=== PATIENT | female | born 1950 | race Caucasian/White ===

== ENCOUNTER 2022-11-03 14:15 | Outpatient (RCR) | payer MEDICARE, BC, SELFPAY | END 2022-12-28 13:13 | disposition home or self-care (01) | PROVIDERS: PCP Family Medicine; Visit Provider Family Medicine | DX: S46.011A Strain of muscle(s) and tendon(s) of the rotator cuff of right shoulder, initial encounter (principal); M25.511 Pain in right shoulder; Z51.89 Encounter for other specified aftercare | CPT/HCPCS: 97110; 97140; 97162; 97535 ==

== ENCOUNTER 2022-11-06 08:47 | Emergency (ER) | payer MEDICARE, BC, SELFPAY ==
[2022-11-06 08:53] VITALS: BP 130/68; PULSE 70; RESP 18; TEMP 36.7; O2SAT 96; BMI 25.7
--- NOTE | 2022-11-06 09:06 | ED_ITS ---
HPI - General Adult General Chief complaint: Cough Stated complaint: cough,heart problems Time Seen by Provider: 11/06/22 08:51 History of Present Illness HPI narrative: pt here with cough and congestion since Monday , has been testing negative for covid, cough is productive, also having a prickling feeling in chest, history of stent 2019 71-year-old woman presenting to the emergency department with complaint of cough, frankly jags of coughing or she will also feel a prickly this now since last night across her upper chest. Does have cardiac history and so has some concerns about this. Thought she should get her heart checked out. Does admit some degree of a chronic cough for she has seen a number of specialists ultimately being diagnosed with rhinitis. Has a history of use of sounds like an antihistamine as well as a steroid nasal spray which admittedly had been helpful when used beyond 2 weeks. Has not had fever. No particular exposures. Cough had been worse when prone but now over the last 4 days is present in most positions. She is not describing orthopnea. Talking makes it worse. Has had numerous sounds from upper airway of wheeze and crackles at times. Negative home testing for COVID. Notes a history of bronchitis but usually not until November. Has been feeling a little nauseated or gas intermittently but otherwise not describing abdominal pain. The plan on traveling next week to [place] and just want to make sure that everything is okay. Related Data Home Medications Medication Instructions Recorded Confirmed azelastine 137 mcg (0.1 %) nasal intranasal 10/17/22 10/17/22 spray aerosol fluticasone propionate 50 spray intranasal 10/17/22 10/17/22 mcg/actuation nasal spray,suspension metoprolol succinate 25 mg 12.5 mg PO DAILY 10/17/22 10/17/22 tablet,extended release 24 hr pantoprazole 40 mg tablet,delayed 40 mg PO DAILY 10/17/22 10/17/22 release rosuvastatin 10 mg tablet 10 mg PO QPM 10/17/22 10/17/22 rosuvastatin 5 mg tablet mg PO 10/17/22 10/17/22 valsartan 40 mg tablet 40 mg PO DAILY 10/17/22 10/17/22 Previous Rx's Medication Instructions Recorded benzonatate 200 mg capsule 200 mg PO TID PRN cough #30 caps 11/06/22 doxycycline monohydrate 100 mg 100 mg PO BID #16 caps 11/06/22 capsule prednisone 20 mg tablet 40 mg (2 x 20 mg) PO DAILY 5 days 11/06/22 #10 tabs Allergies Allergy/AdvReac Type Severity Reaction Status Date / Time lisinopril Allergy Mild Cough Verified 10/17/22 10:32 metronidazole [From Flagyl] Allergy Unknown Verified 10/17/22 10:32 Review of Systems Status of ROS: Reports: 6 or more systems reviewed and unremarkable except as noted in History and below [facility] Social History Smoking Status: Never smoker Do you use any of these nicotine containing products: None How often do you have a drink containing alcohol: 4 or more times a week How many standard drinks containing alcohol do you have on a typical day: 1 or 2 AUDIT-C Alcohol total score: 4 Non-prescribed substance use: denies use Exam Narrative: Exam Narrative: Pleasant. Easily conversant. Breathing easily. Skin is warm and dry. There is no edema. Well-perfused peripherally. Oropharynx is moist. Uvula while not enlarged is resting to the right. I do not appreciate inflammatory changes in the throat. Neck is supple without lymphadenopathy. Lungs with deep inspiratory effort does inspire coarse cough. There is crepitus in bilateral lower lungs. I do not hear wheeze. Heart in regular rate and rhythm. Abdomen is soft and nontender. Const: Vital Signs, click to edit/add: Vital Signs - 24 hr 11/06/22 08:53 11/06/22 09:35 11/06/22 10:05 Temperature 98.0 F Pulse Rate [Right Pulse Oximeter] 70 73 Respiratory Rate 18 16 Blood Pressure [Ri ght Upper Arm] 130/68 115/69 Pulse Oximetry 96 92 93 Oxygen Delivery Me thod Room Air Room Air Documenting provider has reviewed patient's vital signs: yes Course Vital Signs Vital signs: Initial Vital Signs Respiratory Effort Normal 11/06/22 08:52 Respiratory Depth Normal 11/06/22 08:52 Respiratory Pattern Normal 11/06/22 08:52 Vital Signs Temperature 98.0 F 11/06/22 08:53 Pulse Rate 70 11/06/22 08:53 Respiratory Rate 18 11/06/22 08:53 Blood Pressure 130/68 09/24/23 08:53 Pulse Oximetry 96 11/06/22 08:53 Oxygen Delivery Method Room Air 11/06/22 08:53 Temperature 98.0 F 11/06/22 08:53 Pulse Rate 73 11/06/22 10:05 Respiratory Rate 16 11/06/22 10:05 Blood Pressure 115/69 11/06/22 10:05 Pulse Oximetry 93 11/06/22 10:05 Oxygen Delivery Method Room Air 11/06/22 10:05 Medical Decision Making MDM Narrative Medical decision making narrative: Triple swab is pending. Certainly reasonable to check for COVID given community prevalence. Otherwise a chest x-ray would be useful looking for pneumonia or evidence of heart failure otherwise. I reviewed EKG already; looks to be essentially unchanged from prior in December of 2020. By my read chest x-ray looks to be WNL without infiltrate and with normal cardiac silhouette. I do have concerns regarding establishment of chronic cough. She does then mention also that has been experiencing some arm pain. On exam pain seems to be centered around the lateral epicondyle. With resisted supination certainly exaggerates the pain. See patient discharge plan. Lab Data Lab results reviewed: Yes I reviewed the patient's lab results Labs: Lab Results 11/06/22 Range/Units 08:58 SARS-CoV-2 (PCR) Negative SARS-CoV-2 (Negative) Influenza Type A (PCR) Negative PCR FLU A (Negative) Influenza Type B (PCR) Negative PCR FLU B (Negative) RSV (PCR) Negative PCR RSV (Negative) ECG Data Attestation: I personally reviewed and interpreted this ECG as follows: (Right bundle branch block. Rate of 71. No acute ischemic changes. Similar to prior in 2019) Discharge Plan Discharge Clinical Impression: Lateral epicondylitis, Cough, Bronchitis Patient Disposition: Home, Self-Care Condition: Stable Additional Instructions: Your cough is probably multifactorial at this point. This rhinitis contributes to stimulus in your throat. Perhaps sucking on ice chips, continuing your cough drops, otherwise anesthetic throat sprays or lozenges like Chloraseptic or Sucrets, prescribed Tessalon Perles (benzonatate) all might be helpful. Neti pot with nasal saline rinses might be helpful. Menthol vapors. Sleeping under the mist of a cool mist humidifier might be helpful for cough as well. You did have findings on physical exam that would suggest bronchitis otherwise. This term/diagnosis is helpful I think only in the acknowledgement that there is inflammation present and therefore potentially treated by a steroid like prednisone. I have prescribed this. If you are not improving in the next few days, also acceptable in treatment of bronchitis that seems to be lingering is an antibiotic like doxycycline. Would want to protect yourself from the sun while taking this antibiotic. Yes. Chronic cough early on can be modulated by use of gabapentin. For the lateral epicondylitis, consider placing [id number] lidocaine patches. Ice packs. Otherwise see handout on rehabilitation here. Prescriptions: New doxycycline monohydrate 100 mg capsule 100 mg PO BID Qty: 16 0RF prednisone 20 mg tablet 40 mg PO DAILY 5 Days Qty: 10 0RF benzonatate 200 mg capsule 200 mg PO TID PRN (Reason: cough) Qty: 30 0RF No Action pantoprazole 40 mg tablet,delayed release (DR/EC) 40 mg PO DAILY metoprolol succinate 25 mg tablet extended release 24 hr 12.5 mg PO DAILY fluticasone propionate 50 mcg/actuation spray,suspension intranasal azelastine 137 mcg (0.1 %) aerosol,spray intranasal Patient Comments: [NO ORIGINAL SIG] rosuvastatin 10 mg tablet 10 mg PO QPM valsartan 40 mg tablet 40 mg PO DAILY rosuvastatin 5 mg tablet PO Follow Up/Referrals: Basim Vickers MD [Primary Care Provider] - Stand Alone Forms: [employer] Info Instructions
[2022-11-06 09:35] VITALS: O2SAT 92
--- NOTE | 2022-11-06 09:36 | CRLHL7_ITS ---
For Patients: As a result of the Cures Act, medical imaging exams and procedure reports are released immediately into your electronic medical record. You may view this report before your referring provider. If you have questions, please contact your health care provider. INDICATION: Cough. TECHNIQUE: Chest 1 view(s) COMPARISON: Chest radiograph dated 12/18/2020, 09/01/2019. FINDINGS: Stable cardiomediastinal silhouette and pulmonary vasculature. No focal consolidation. No significant layering pleural effusion. No pneumothorax. No acute chest wall abnormality. IMPRESSION: No focal consolidation. Dictated by Ame Okeefe MD @ 11/06/2022 11:13:28 AM (Electronically Signed)
[2022-11-06 09:50] LABS: PCR FLU A Negative PCR FLU A (Negative); PCR FLU B Negative PCR FLU B (Negative); PCR RSV Negative PCR RSV (Negative)
[2022-11-06 10:05] VITALS: BP 115/69; PULSE 73; RESP 16; O2SAT 93
[2022-11-06 10:09] LABS: SARS PCR* Negative SARS-CoV-2 (Negative)
[2022-11-06] MEDS: IBUPROFEN 400 MG TABLET 800 MG PO (10:26)
== END 2022-11-06 11:06 | disposition home or self-care (01) ==
PROVIDERS: Emergency Provider Family Medicine; PCP Family Medicine
DX: J40 Bronchitis, not specified as acute or chronic (principal)
CPT/HCPCS: 71045; 87631; 93005; 94761; 99284; 99285; A9270

== ENCOUNTER 2023-04-18 21:33 | Emergency (ER) | payer MEDICARE, BC, SELFPAY ==
[2023-04-18 21:39] VITALS: BP 162/109; PULSE 82; RESP 18; TEMP 36.6; O2SAT 96; BMI 25.7
--- NOTE | 2023-04-18 21:50 | ED.GENADULT ---
HPI - General Adult General Chief complaint: Hip Injury/Pain Stated complaint: Right side injured ligament Time Seen by Provider: 04/18/23 21:41 History of Present Illness HPI narrative: R hip pop while dancing tonight at 2100 . states no pain meds prior to coming. denies any hx of trauma or injury 72-year-old woman presenting to the emergency department with complaint of right hip area pain. 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 I believe she is describing a full flexion/abduction/external rotation of the hip that seems to have triggered this. She does not have hip issues typically otherwise. Has had significant pain. Has had to keep her legs somewhat more together and a shuffling gait since this time. No neck or back pain. She did not fall prompting this injury. No symptoms radiating into the lower legs. No abdominal pain. In later discussion has had piriformis syndrome before. This would seem atypical for that. Related Data Home Medications Medication Instructions Recorded Confirmed azelastine 137 mcg (0.1 %) nasal intranasal 10/17/22 10/17/22 spray aerosol fluticasone propionate 50 spray intranasal 10/17/22 10/17/22 mcg/actuation nasal spray,suspension metoprolol succinate 25 mg 12.5 mg PO DAILY 10/17/22 10/17/22 tablet,extended release 24 hr pantoprazole 40 mg tablet,delayed 40 mg PO DAILY 10/17/22 10/17/22 release rosuvastatin 10 mg tablet 10 mg PO QPM 10/17/22 10/17/22 rosuvastatin 5 mg tablet mg PO 10/17/22 10/17/22 valsartan 40 mg tablet 40 mg PO DAILY 10/17/22 10/17/22 Previous Rx's Medication Instructions Recorded benzonatate 200 mg capsule 200 mg PO TID PRN cough #30 caps 11/06/22 doxycycline monohydrate 100 mg 100 mg PO BID #16 caps 11/06/22 capsule prednisone 20 mg tablet 40 mg (2 x 20 mg) PO DAILY 5 days 11/06/22 #10 tabs Allergies Allergy/AdvReac Type Severity Reaction Status Date / Time lisinopril Allergy Mild Cough Verified 10/17/22 10:32 metronidazole [From Flagyl] Allergy Unknown Verified 10/17/22 10:32 Review of Systems Status of ROS: Reports: 6 or more systems reviewed and unremarkable except as noted in History and below [facility] Social History Smoking Status: Never smoker Do you use any of these nicotine containing products: None How often do you have a drink containing alcohol: 4 or more times a week How many standard drinks containing alcohol do you have on a typical day: 1 or 2 AUDIT-C Alcohol total score: 4 Non-prescribed substance use: denies use service: No Exam Narrative: Exam Narrative: Very pleasant. Clearly uncomfortable with transition. Breathing easily. Skin is warm and dry. The partially visualized skin does not appear to have any evidence of trauma. Palpation of the midline back does not elicit pain. She has vaguely tender maybe in the right SI joint. Oppositional Xavier's is negative. Pain seems to be most palpable in the upper gluteal area right behind the right greater trochanter. She does not have pain at the greater trochanter. Pain is not palpable in the abdomen or groin. No swelling appreciated. Isolating the right hip with rotation and flexion does not clearly reproduce her pain. Const: Vital Signs, click to edit/add: Vital Signs - 24 hr 04/18/23 21:39 04/19/23 00:05 Temperature 97.8 F Pulse Rate [Pulse Oximeter] 82 72 Respiratory Rate 18 16 Blood Pressure [Le ft Upper Arm] 162/109 H Pulse Oximetry 96 98 Oxygen Delivery Me thod Room Air Room Air Documenting provider has reviewed patient's vital signs: yes Course Vital Signs Vital signs: Initial Vital Signs Temperature 97.8 F 04/18/23 21:39 Temperature Source Temporal Artery Scan 04/18/23 21:39 Pulse Rate 82 04/18/23 21:39 Respiratory Rate 18 04/18/23 21:39 Blood Pressure 162/109 H 04/18/23 21:39 Blood Pressure Mean 126 H 04/18/23 21:39 Blood Pressure Position Sitting 04/18/23 21:39 Pulse Oximetry 96 04/18/23 21:39 Oxygen Delivery Method Room Air 04/18/23 21:39 Vital Signs Temperature 97.8 F 04/18/23 21:39 Pulse Rate 82 04/18/23 21:39 Respiratory Rate 18 04/18/23 21:39 Blood Pressure 162/109 H 04/18/23 21:39 Pulse Oximetry 96 04/18/23 21:39 Oxygen Delivery Method Room Air 04/18/23 21:39 Temperature 97.8 F 04/18/23 21:39 Pulse Rate 72 04/19/23 00:05 Respiratory Rate 16 04/19/23 00:05 Blood Pressure 162/109 H 04/18/23 21:39 Pulse Oximetry 98 04/19/23 00:05 Oxygen Delivery Method Room Air 04/19/23 00:05 Medical Decision Making MDM Narrative Medical decision making narrative: Certainly possible there is a hip fracture of somewhat benign etiology. Maybe some radicular discomfort from the SI joint but does not seem typical for sacral iliac joint problem. May have avulsed from the greater trochanter. Later consideration perhaps snapping hip syndrome. Does not appear to be internal to the hip joint itself i.e. meniscal disruption or labral issue. There is a gluteal bursa in the area that I suppose could be inflamed though does not have any prodrome leading up to more acute pain. Ordering an ice pack. X-rays focused on the right hip and pelvis. Reviewed by me there is a calcification external to the right greater trochanter that appears to be old. There is some density in the right greater trochanter relative to the left. Radiology over-read as below Final Report: INDICATION: Pelvic hip pain post to greater trochanter. Right side injury TECHNIQUE: Pelvis radiograph, Hip radiograph 3 views right COMPARISON: None FINDINGS: Bone: No acute fractures or aggressive bone lesions are identified. There is an ill-defined region of sclerosis in the greater trochanter measuring approximately 1.5 cm. Joint: The hip joints are unremarkable. The visualized sacroiliac joints are unremarkable in appearance. The pubic symphysis is normal in appearance. Soft tissue: Unremarkable. The visualized bowel gas pattern of the pelvis is unremarkable in appearance. No radiopaque foreign bodies are seen. IMPRESSIONS: 1. No acute osseous injuries or abnormalities are noted. 2. There is an ill-defined region of sclerosis in the greater trochanter measuring approximately 1.5 cm. Further assessment with bone scan or MRI may be helpful if the patient has a history of primary malignancy. I returned to discuss these images with Ms. Powers and her . She does not have known history of any malignancy. Perhaps this is some fibrotic change? Discussed further with radiology as well. The calcification that I mentioned above is thought to be within the gluteal musculature and chronic. Understandably is concerned about moving forward with this show. We discussed further imaging. Fawn brought up and I concur that in the interest of time close follow-up with Orthopedics/sports medicine; I will contact them in the morning to facilitate. I would be disinclined to do any steroid injections though we also discussed potentially taking oral steroids though this issue does not appear to be within the joint which point of might be more in indicated. We discussed locating comparison imaging to see about this sclerosis in the right greater trochanter. See patient discharge plan Discharge Plan Discharge Clinical Impression: Acute hip pain, Bone lesion Patient Disposition: Home w/ Parent or Adult Condition: Stable Additional Instructions: I would ice these areas that hurt regularly maybe 2-3 times daily over the next few days. See handout on snapping hip syndrome. This may have been what happened here. I will reach out Orthopedics in the morning for follow-up for you. Perhaps with a little food might want to take 600 mg of ibuprofen 3 times daily over the next couple of days. This can be combined with acetaminophen or [place] from [facility]. Can take up to 1000 mg of acetaminophen per dose. Keep in mind that each tablet of [place] contains 325 mg of acetaminophen. Prescriptions: No Action pantoprazole 40 mg tablet,delayed release (DR/EC) 40 mg PO DAILY metoprolol succinate 25 mg tablet extended release 24 hr 12.5 mg PO DAILY fluticasone propionate 50 mcg/actuation spray,suspension intranasal azelastine 137 mcg (0.1 %) aerosol,spray intranasal Patient Comments: [NO ORIGINAL SIG] rosuvastatin 10 mg tablet 10 mg PO QPM valsartan 40 mg tablet 40 mg PO DAILY rosuvastatin 5 mg tablet PO doxycycline monohydrate 100 mg capsule 100 mg PO BID Qty: 16 0RF prednisone 20 mg tablet 40 mg PO DAILY 5 Days Qty: 10 0RF benzonatate 200 mg capsule 200 mg PO TID PRN (Reason: cough) Qty: 30 0RF Follow Up/Referrals: Basim Vickers MD [Primary Care Provider] - Stand Alone Forms: [facility] Info Inst[facility]
--- NOTE | 2023-04-18 21:56 | XR_ITS ---
Patient: NAWAF FERNANDEZ Facility:?[facility] Patient ID:?[id number] Site Patient ID:?[id number]. Site :?[id number] Study:?XRay-Hip Right 2V-04/18/2023 10:24:43 PM Ordering Physician:LOUIS Final Report: INDICATION: Pelvic hip pain post to greater trochanter. Right side injury TECHNIQUE: Pelvis radiograph, Hip radiograph 3 views right COMPARISON: None FINDINGS: Bone: No acute fractures or aggressive bone lesions are identified. There is an ill-defined region of sclerosis in the greater trochanter measuring approximately 1.5 cm. Joint: The hip joints are unremarkable. The visualized sacroiliac joints are unremarkable in appearance. The pubic symphysis is normal in appearance. Soft tissue: Unremarkable. The visualized bowel gas pattern of the pelvis is unremarkable in appearance. No radiopaque foreign bodies are seen. IMPRESSIONS: 1. No acute osseous injuries or abnormalities are noted. 2. There is an ill-defined region of sclerosis in the greater trochanter measuring approximately 1.5 cm. Further assessment with bone scan or MRI may be helpful if the patient has a history of primary malignancy. Dictated by Rakesh Price MD @ 04/18/2023 10:37:23 PM Dictated by: Rakesh Price MD @ 04/18/2023 22:37:29 Signed by:Maria A Price MD @04/18/2023 10:37:29 PM (Electronic Signature)
[2023-04-19 00:05] VITALS: PULSE 72; RESP 16; O2SAT 98
== END 2023-04-19 00:17 | disposition home or self-care (01) ==
PROVIDERS: Emergency Provider Family Medicine; PCP Family Medicine
DX: J10.1 Influenza due to other identified influenza virus with other respiratory manifestations (principal)
CPT/HCPCS: 73502; 99283; 99284

== ENCOUNTER 2023-04-27 08:03 | Outpatient (CLI) | payer MEDICARE, BC, SELFPAY ==
--- NOTE | 2023-04-27 08:15 | MR_ITS ---
[address] [address] Phone:?[phone] Fax:?[phone] Referring Physician Information: Jaguar Cutler M.D. [id number] [facility] [address] Phone:?[phone] Fax:?[phone] Patient:Juana Powers D.O.B:?1950 Sex:?Female Phone:?[phone] [facility] MRN:?[id number] Exam Date:?04/27/2023 EXAM: MRI EXAMINATION OF THE RIGHT HIP CLINICAL INFORMATION: The patient is a 72-year-old with right hip pain. Evaluate for occult fracture or sclerotic lesion of the greater trochanter. PRIOR SURGERY: None reported. COMPARISON STUDIES: Comparison is made to prior radiographs dated 04/18/2023. TECHNICAL INFORMATION: Using a 1.5T MR scanner and a localizing surface coil: 4.0 mm?coronals: PD, T2 4.0 mm?sagittals: PD, T2 3.0 mm?oblique axials: PD 4.0 mm?straight axials: T2FS 4.0 mm?coronals: T1, STIR of pelvis and hips FINDINGS: Hip joint: Mild osteoarthritic changes of the hips are seen bilaterally. No definite hip joint effusions are present. Articular Cartilage: There is full-thickness and near full-thickness chondral loss seen along the anterosuperior articular surfaces of the right hip. No well- defined intra-articular loose bodies are present. Labrum: Degeneration and poorly defined tearing of the anterior and superior portions of the right acetabular labrum can be seen. No definite paralabral ganglion cyst formation is identified. Proximal femur: The bone marrow signal of the proximal femoral head, femoral neck and intertrochanteric region is normal in appearance without evidence of structural abnormality or lesion of abnormal signal intensity. There is no evidence of avascular necrosis, fracture or stress injury. No definite evidence for bone lesion involving the greater trochanteric region can be seen to correspond with the area seen on the recent radiographs. Bony prominence of the anterosuperior aspects of the right femoral head neck junction can be seen, in keeping with cam-type morphology. The alpha angle is approximately 65 degrees. Acetabulum: Degenerative changes along the articular surfaces of the acetabulum can be seen with spurring along the acetabular rim. The findings are in keeping with mild osteoarthritic change. No acute bony abnormalities of the acetabulum are present. There is no definite retroversion or osseous over coverage. There are no definite abnormalities in acetabular morphology. The ligamentum teres is intact. Myotendinous Structures: Tendinosis and partial-thickness tearing of the right common hamstrings origin is present and can be seen on coronal series 2 image 22 and on axial series 7 image 20. There is a broad-based area of suspected injury involving the right iliotibial band, seen on coronal series 2 image 18 with soft tissue edema and/or hemorrhage and suspected fluid collection. This area of injury can only be seen on the large [id number] images of the pelvis and is thought to measure approximately 6.0 cm in craniocaudal dimension. Areas of fluid collection, in keeping with hematoma are present, the largest of which measures approximately 28 mm in greatest dimension. Additionally, there is broad-based strain or contusion involving the lateral aspect of the right gluteus medius seen on coronal series 2 image 19 and on axial series 7 image 1. No definite evidence for rupture of the distal right gluteus medius or gluteus minimus tendons can be seen. No evidence for injury to the right adductor compartment can be seen. The right iliopsoas is within normal limits. Bursae: Mild fluid is seen within the right greater trochanteric bursa, in keeping with mild bursitis. Pelvic soft tissues: The soft tissues of the pelvis appear otherwise preserved. There is no evidence of soft tissue mass or adenopathy. No acute intrapelvic abnormalities are seen. Pelvic osseous structures: Large [id number] coronal survey images show no evidence of a pelvic fracture or demonstrable stress injury. The sacrum and SI joints appear normal. The symphysis pubis is normal in appearance. Lumbosacral junction: Degenerative disc disease of the lumbar spine is noted. CONCLUSION: 1. Suspected injury to the right iliotibial band with small fluid collections present, in keeping with hematoma formation. 2. Contusion or strain involving the lateral aspect of the right gluteus medius without definite evidence for distal tendon rupture. 3. 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 No acute bony abnormalities of the right hip or pelvis are present. 4. Mild right greater trochanteric bursitis. 5. Degenerative disc disease of the lumbar spine. [facility] Electronically signed on 04/27/2023 10:24:00 AM by Ricardo Gresham M.D.
== END 2023-04-27 08:04 | disposition home or self-care (01) ==
LOC: MRI 08:04
PROVIDERS: PCP Family Medicine; Visit Provider Orthopaedic Surgery
DX: M25.551 Pain in right hip (principal); S70.01XA Contusion of right hip, initial encounter; M16.11 Unilateral primary osteoarthritis, right hip; M89.9 Disorder of bone, unspecified; S79.911A Unspecified injury of right hip, initial encounter
CPT/HCPCS: 73721

== ENCOUNTER 2023-05-24 11:52 | Outpatient (CLI) | payer MEDICARE, BC, SELFPAY | END 2023-05-24 11:53 | disposition home or self-care (01) | LOC: AMB 05-28 06:27 | PROVIDERS: PCP Family Medicine; Visit Provider Family Medicine | DX: R07.89 Other chest pain (principal); R05.9 Cough, unspecified | CPT/HCPCS: A0425; A0427 ==

== ENCOUNTER 2023-05-24 12:21 | Emergency (ER) | payer MEDICARE, BC, SELFPAY ==
[2023-05-24 12:32] VITALS: BP 156/82; PULSE 90; RESP 20; TEMP 36.7; O2SAT 95; BMI 25.7
[2023-05-24 12:33] VITALS: O2SAT 94
--- NOTE | 2023-05-24 12:36 | XR_ITS ---
Patient: NAWAF FERNANDEZ Facility:?[facility] RIS Patient ID:?[id number] Site Patient ID:?[id number] Site :?[id number] Study:?XRay-Chest Portable-05/24/2023 1:35:35 PM Ordering Physician:Nancy Ricketts Final Report: INDICATION: Cough. COMPARISON: 11/06/2022 TECHNIQUE: 1 view. FINDINGS: Medical Devices: None. Lung Volumes: Adequate inspiration. No significant atelectasis. Lungs: Clear lungs. Pleura and Pleural spaces: No significant pleural effusion. No pneumothorax. Mediastinum: Normal cardiomediastinal silhouette. Bony Thorax and Soft Tissues: No significant incidental findings. IMPRESSION: No imaging findings pertinent to the indication for the exam or significant unrelated findings. No significant interval change. Dictated by Jaden Harper MD @ 05/24/2023 1:37:42 PM Signed by:?Jaden Harper MD @05/24/2023 1:37:42 PM (Electronic Signature)
--- NOTE | 2023-05-24 12:48 | ED_ITS ---
HPI - General Adult General Chief complaint: Cough Stated complaint: shortness of breath Time Seen by Provider: 05/24/23 12:24 History of Present Illness HPI narrative: Patient is a 70-year-old female with chronic bronchitis who presents with several day history of cough shortness of breath congestion, chest tightness. Patient denies chest pain, but she does report she had a myocardial infarction in the past. She came in by ambulance as she was concerned and instructed by the triage nurse to come in by ambulance complete with her complaint of cough and shortness of breath. She has done home COVID test that were negative. Has had no leg swelling or edema, no history of congestive heart failure or active coronary disease. Patient has had recurrent bronchitis as mention. Related Data Home Medications Medication Instructions Recorded Confirmed azelastine 137 mcg (0.1 %) nasal intranasal 10/17/22 05/02/23 spray aerosol fluticasone propionate 50 spray intranasal 10/17/22 05/02/23 mcg/actuation nasal spray,suspension metoprolol succinate 25 mg 12.5 mg PO DAILY 10/17/22 05/24/23 tablet,extended release 24 hr pantoprazole 40 mg tablet,delayed 40 mg PO DAILY 10/17/22 05/24/23 release rosuvastatin 10 mg tablet 10 mg PO QPM 10/17/22 05/24/23 valsartan 40 mg tablet 40 mg PO DAILY 10/17/22 05/24/23 Previous Rx's Medication Instructions Recorded azithromycin 500 mg tablet 500 mg PO DAILY 7 days #7 tabs 05/24/23 (Zithromax) prednisone 20 mg tablet 20 mg PO BID #10 tabs 05/24/23 Allergies Allergy/AdvReac Type Severity Reaction Status Date / Time lisinopril Allergy Mild Cough Verified 05/24/23 12:37 metronidazole [From Flagyl] Allergy Mild Verified 05/24/23 12:37 sulfamethoxazole Allergy Unknown Verified 05/24/23 12:37 [From Sulfamethoxazole-Trimethoprim] trimethoprim Allergy Unknown Verified 05/24/23 12:37 [From Sulfamethoxazole-Trimethoprim] Review of Systems Status of ROS: Reports: 6 or more systems reviewed and unremarkable except as noted in History and below [facility] Medical History Viral infection ?B34.9 - Viral infection, unspecified (ICD-10) Strain of neck muscle ?S16.1XXA - Strain of muscle, fascia and tendon at neck level, initial encounter (ICD-10) Ocular migraine ?G43.109 - Migraine with aura, not intractable, without status migrainosus (ICD-10) Laceration of scalp without complication ?S01.01XA - Laceration without foreign body of scalp, initial encounter (ICD- 10) Concussion ?S06.0XAA - Concussion with loss of consciousness status unknown, initial encounter (ICD-10) Chest pain ?R07.9 - Chest pain, unspecified (ICD-10) Surgical History History of heart artery stent (2018) ?Z95.5 - Presence of coronary angioplasty implant and graft (ICD-10) History of parathyroidectomy ?Z98.890 - Other specified postprocedural states (ICD-10) ?Z90.89 - Acquired absence of other organs (ICD-10) History of repair of anterior cruciate ligament of left knee (11/09/07) ?Z98.890 - Other specified postprocedural states (ICD-10) Family History Sister DVT (deep venous thrombosis) Social History Narrative: -Sumanth Smoking Status: Never smoker Do you use any of these nicotine containing products: None How often do you have a drink containing alcohol: 4 or more times a week How many standard drinks containing alcohol do you have on a typical day: 1 or 2 AUDIT-C Alcohol total score: 4 Non-prescribed substance use: denies use service: No Exam Narrative: Exam Narrative: Objective: Patient's vital signs look within normal limits afebrile, O2 sats 95% on room air HEENT is unremarkable no facial asymmetry no scleral icterus Neck is supple Chest basilar wheezes clear somewhat with deep breathing heart rhythm without murmur Abdomen benign Extremities are no edema neurologic nonfocal Const: Vital Signs, click to edit/add: Vital Signs - 24 hr 05/24/23 12:32 05/24/23 12:33 Temperature 98.1 F Pulse Rate [Pulse Oximeter] 90 Respiratory Rate 20 Blood Pressure [Le ft Upper Arm] 156/82 H Pulse Oximetry 95 94 Oxygen Delivery Me thod Room Air Course Vital Signs Vital signs: Initial Vital Signs Temperature 98.1 F 05/24/23 12:32 Temperature Source Temporal Artery Scan 05/24/23 12:32 Pulse Rate 90 05/24/23 12:32 Pulse Rhythm Regular 05/24/23 12:32 Pulse Strength 3+ Normal 05/24/23 12:32 Respiratory Rate 20 05/24/23 12:32 Blood Pressure 156/82 H 05/24/23 12:32 Blood Pressure Mean 106 H 05/24/23 12:32 Blood Pressure Position Sitting 05/24/23 12:32 Pulse Oximetry 95 05/24/23 12:32 Oxygen Delivery Method Room Air 05/24/23 12:32 Vital Signs Temperature 98.1 F 05/24/23 12:32 Pulse Rate 90 05/24/23 12:32 Respiratory Rate 20 05/24/23 12:32 Blood Pressure 156/82 H 05/24/23 12:32 Pulse Oximetry 95 05/24/23 12:32 Oxygen Delivery Method Room Air 05/24/23 12:32 Temperature 98.1 F 05/24/23 12:32 Pulse Rate 90 05/24/23 12:32 Respiratory Rate 20 05/24/23 12:32 Blood Pressure 156/82 H 05/24/23 12:32 Pulse Oximetry 94 05/24/23 12:33 Oxygen Delivery Method Room Air 05/24/23 12:32 Medications Administered Medications: Discontinued Medications Generic Name Dose Route Start Last Admin Trade Name Freq PRN Reason Stop Dose Admin Azithromycin 500 mg 05/24/23 12:38 05/24/23 13:01 Azithromycin 100 Mg/Ml Inj IVPB 05/24/23 12:39 500 mg ONCE ONE Administration Sodium Chloride 500 mls @ 500 mls/hr 05/24/23 12:37 05/24/23 12:55 0.9 % Sodium Chloride 500 Ml IV 05/24/23 13:36 500 mls/hr .Q1H ONE Administration Methylprednisolone Sodium Succinate 125 mg 05/24/23 12:37 05/24/23 12:58 Methylprednisolone Sod Succ 62.5 Mg/Ml (125) IVP 05/24/23 12:38 125 mg ONCE ONE Administration Medical Decision Making MDM Narrative Medical decision making narrative: 72 year white female with chronic bronchitis with a cough and shortness of breath. Possible says COPD type exacerbation, patient will get nebulizer, IV antibiotics, IV fluid, chest x-ray and labs, because of her history of coronary disease will get an EKG and troponin as well. Disposition pending findings above. Will also get COVID/influenza/RSV test Addendum 1:48 p.m.: The patient's EKG looks unchanged from 11/05, sinus rhythm, right bundle-branch block. Patient's chest x-ray by my review looks negative. Laboratory studies show minimally elevated white count . hemoglobin is normal. Troponin is negative. ER profile is unremarkable, CRP is pending, viral studies are all negative. Will send the patient home with Zithromax and prednisone. Rest observation light activity fluids and follow up with primary care in the next few few days, return to ED sooner problems or concerns. Lab Data Labs: Lab Results 05/24/23 05/24/23 05/24/23 Range/Units 12:30 12:48 13:00 WBC 11.28 H (4.50-11.00) K/uL RBC 4.48 (4.00-5.20) m/uL Hgb 13.2 (12.0-16.0) gm/dL Hct 40.1 (33.0-51.0) % MCV 90 (80-100) fL MCH 30 (26-34) pg MCHC 33 (32-36) gm/dL RDW Coeff of Ankita 13.6 (11.5-15.5) % Plt Count 222 (140-440) K/uL Neut % (Auto) 72.7 H (42.0-72.0) % Lymph % (Auto) 17.6 L (20-44) % [place] % (Auto) 7.0 (0.0-11.0) % Eos % (Auto) 2.2 (0.0-7.0) % Baso % (Auto) 0.4 (0.0-3.0) % Neut # (Auto) 8.20 H (1.7-7.0) K/uL Lymph # (Auto) 2.00 (0.90-2.90) K/uL [place] # (Auto) 0.80 (0.00-0.90) K/UL Eos # (Auto) 0.20 (0.00-0.50) K/uL Baso # (Auto) 0.00 (0.00-0.30) K/uL Abs Immat Gran (auto) 0.00 (0.00-0.30) K/uL Imm/Tot Granulo (auto) 0.1 % Sodium 139 (135-149) mmol/L Potassium 3.7 (3.6-5.1) mmol/L Chloride 106 (96-114) mmol/L Carbon Dioxide 26 (20-32) mmol/L Anion Gap 7 (7-15) mEq/L BUN 11 (7-30) mg/dL Creatinine 0.8 (0.5-1.5) mg/dL Estimated Creat Clear 43.91 Estimated GFR 78 ml/min Glucose 108 (60-115) mg/dL Calcium 9.8 (8.4-10.6) mg/dL Total Bilirubin 0.4 (0.1-1.5) mg/dL Direct Bilirubin 0.0 (0.0-0.5) mg/dL AST 30 (12-35) U/L ALT 27 (4-35) U/L Alkaline Phosphatase 85 (40-150) U/L C-Reactive Protein 2.0 H (0.5-1.0) mg/dL Total Protein 7.1 (6.0-8.3) g/dL Albumin 4.3 (3.3-5.0) g/dL SARS-CoV-2 (PCR) Negative SARS-CoV-2 (Negative) Influenza Type A (PCR) Negative PCR FLU A (Negative) Influenza Type B (PCR) Negative PCR FLU B (Negative) RSV (PCR) Negative PCR RSV (Negative) POC Troponin I 0.00 L (0.01-0.04) ng/ml Discharge Plan Discharge Clinical Impression: Acute cough, Chronic bronchitis Patient Disposition: Home w/ Parent or Adult Condition: Stable Additional Instructions: Light activity, fluids, start prednisone as prescribed as well as Zithromax daily for 7 days. Follow up with primary care as needed, return to ED sooner problems concerns or worsening. Activity Level: Light activity Discharge Diet: Regular Prescriptions: New prednisone 20 mg tablet 20 mg PO BID Qty: 10 0RF azithromycin [Zithromax] 500 mg tablet 500 mg PO DAILY 7 Days Qty: 7 0RF No Action pantoprazole 40 mg tablet,delayed release (DR/EC) 40 mg PO DAILY metoprolol succinate 25 mg tablet extended release 24 hr 12.5 mg PO DAILY fluticasone propionate 50 mcg/actuation spray,suspension intranasal azelastine 137 mcg (0.1 %) aerosol,spray intranasal Patient Comments: [NO ORIGINAL SIG] rosuvastatin 10 mg tablet 10 mg PO QPM valsartan 40 mg tablet 40 mg PO DAILY Follow Up/Referrals: Basim Vickers MD [Primary Care Provider] - Stand Alone Forms: Meez Info Instructions
[2023-05-24] MEDS: 0.9 % SODIUM CHLORIDE 500 ML 500 ML IV (12:55)
[2023-05-24] MEDS: METHYLPREDNISOLONE SOD SUCC 62.5 MG/ML (125) 125 MG IVP (12:58)
[2023-05-24] MEDS: AZITHROMYCIN 100 MG/ML inj 500 MG IVPB (13:01)
[2023-05-24 13:21] LABS: Basophils Percent Auto 0.4 % (0.0-3.0); Eosinophils Percent Auto 2.2 % (0.0-7.0); Hematocrit 40.1 % (33.0-51.0); Hemoglobin* 13.2 gm/dL (12.0-16.0); Immature Granulocytes Pct Auto 0.1 %; Lymphocytes Percent Auto 17.6 % (20-44); Mean Corpuscular HGB Conc 33 gm/dL (32-36); Mean Corpuscular Hemoglobin 30 pg (26-34); Mean Corpuscular Volume 90 fL (80-100); Neutrophils Percent Auto 72.7 % (42.0-72.0); Platelet Count* 222 K/uL (140-440); RDW Coefficient of Variation % 13.6 % (11.5-15.5); Red Blood Count 4.48 m/uL (4.00-5.20); White Blood Count* 11.28 K/uL (4.50-11.00)
[2023-05-24 13:26] LABS: Slide Review Reflex No
[2023-05-24 13:37] LABS: Albumin* 4.3 g/dL (3.3-5.0); Chloride* 106 mmol/L (96-114)
[2023-05-24 13:38] LABS: Potassium* 3.7 mmol/L (3.6-5.1); Sodium* 139 mmol/L (135-149)
[2023-05-24 13:40] LABS: PCR FLU A Negative PCR FLU A (Negative); PCR FLU B Negative PCR FLU B (Negative); PCR RSV Negative PCR RSV (Negative); SARS PCR* Negative SARS-CoV-2 (Negative)
[2023-05-24 13:40] LABS: Anion Gap 7 mEq/L (7-15); Aspartate Amino Transferase* 30 U/L (12-35); Bilirubin Total* 0.4 mg/dL (0.1-1.5); Carbon Dioxide* 26 mmol/L (20-32); Creatinine* 0.8 mg/dL (0.5-1.5); Est. Creatinine Clearance* 43.91; Estimated Glomerular Filt Rate 78 ml/min; Total Protein* 7.1 g/dL (6.0-8.3)
[2023-05-24 13:41] LABS: Alanine Aminotransferase* 27 U/L (4-35); Blood Urea Nitrogen* 11 mg/dL (7-30); Calcium* 9.8 mg/dL (8.4-10.6); Glucose* 108 mg/dL (60-115)
[2023-05-24 14:02] LABS: Alkaline Phosphatase* 85 U/L (40-150)
== END 2023-05-24 14:31 | disposition home or self-care (01) ==
PROVIDERS: Emergency Provider Family Medicine; PCP Family Medicine
DX: J42 Unspecified chronic bronchitis (principal); R05.1 Acute cough
CPT/HCPCS: 36415; 71045; 80048; 80076; 84484; 85025; 86140; 87631; 93005; 94761; 96361; 96374; 96375; 99284; 99285; J0456; J2919; J7030

== ENCOUNTER 2024-06-24 12:45 | Outpatient (RCR) | payer MEDICARE, BC, SELFPAY | END 2024-10-22 23:59 | disposition home or self-care (01) | PROVIDERS: PCP Family Medicine; Visit Provider Family Medicine | DX: M54.12 Radiculopathy, cervical region (principal); M77.12 Lateral epicondylitis, left elbow; M75.82 Other shoulder lesions, left shoulder; Z51.89 Encounter for other specified aftercare | CPT/HCPCS: 97012; 97110; 97140; 97162 ==